=== PATIENT | male | born 1995 | race Caucasian/White ===

== ENCOUNTER 2017-10-27 07:12 | Emergency (ER) | payer OTHER, BC ==
[2017-10-27 07:34] VITALS: BP 128/68
[2017-10-27] MEDS ORDERED: Lidocaine 1% 50 ML MDV INJECT ONE (07:42)
[2017-10-27] MEDS ORDERED: Sodium Chloride 0.9% 500 ML IV ONE (07:42)
[2017-10-27] MEDS ORDERED: HYDROmorphone 1 MG/ML Syringe IVPUSH ONE (07:42)
[2017-10-27] MEDS ORDERED: ceFAZolin 2 GM in Premix Bag 1 BAG IV ONE (07:42)
[2017-10-27] MEDS ORDERED: Sodium Chloride 0.9% 10 ML Syringe FLUSH PRN (07:42)
[2017-10-27] MEDS ORDERED: Ondansetron 4 MG/2 ML SDV IVPUSH ONE (07:42)
--- NOTE | 2017-10-27 09:45 | EDM.PDOC ---
ED HPI GENERAL MEDICAL PROBLEM - General Chief Complaint: Laceration Stated Complaint: RIGHT HAND LAC Time Seen by Provider: 10/27/17 07:35 Source of Information: Reports: Patient, RN Notes Reviewed - History of Present Illness INITIAL COMMENTS - FREE TEXT/NARRATIVE: 22-year-old male suffered laceration injury to his right hand at work short time ago. He was on the back end of a trailer in his he jumped down his hand caught on edge with resultant flap laceration ulnar aspects right hand. He does have some mild numbness of the distal finger. no difficulty with flexion or extension. No other injury. He is right-handed. Up-to-date with tetanus. 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 [No Known Home Meds] 10/27/17 [History] Past Medical History - Past Health History Medical/Surgical History: Denies Medical/Surgical History Musculoskeletal History: Reports: Fracture - Past Surgical History HEENT Surgical History: Reports: Adenoidectomy, Myringotomy w Tube(s), Oral Surgery, Tonsillectomy Musculoskeletal Surgical History: Reports: Shoulder Replacement Social & Family History - Family History Family Medical History: Noncontributory - Tobacco Use Smoking Status *Q: Current Some Day Smoker Years of Tobacco use: 5 Packs/Tins Daily: 0.5 - Caffeine Use Caffeine Use: Reports: Energy Drinks - Recreational Drug Use Recreational Drug Use: No ED ROS GENERAL - Review of Systems Review Of Systems: See Below HEENT: Reports: No Symptoms Respiratory: Denies: Shortness of Breath Cardiovascular: Denies: Chest Pain GI/Abdominal: Denies: Abdominal Pain, Nausea, Vomiting Musculoskeletal: Reports: Other (Pain associated with injury left hand) Skin: Reports: Other (Huge flap laceration injury left hand) Neurological: Reports: Numbness (Mild numbness ulnar aspect of distal ring finger right hand). Denies: Weakness ED EXAM, SKIN/RASH Exam: See Below General Appearance: Alert, Moderate Distress Eye Exam: Bilateral Eye: PERRL Throat/Mouth: Normal Inspection Head: Atraumatic Neck: Supple Respiratory/Chest: No Respiratory Distress Extremities: Other (8 cm large deep gaping flap injury ulnar palmar aspect right hand proximal to the small finger. No foreign material seen. Blood present but no active bleeding. Good finger range of motion and strength, no bony tenderness, no visible deformity) Neurological: Alert, Oriented, Other (No motor weakness, excellent flexion and extension strength. Incision very mildly decreased to touch ulnar aspect of small finger distally.) Skin: Warm, Dry ED SKIN PROCEDURES - Laceration/Wound Repair Right Ventral Hand Lac/Wound length In cm: 8 Appearance: Irregular, Other (Deep gaping jagged flap) Distal NVT: Other (Distal sensation mildly diminished ulnar aspect distal small finger) Anesthetic Type: Local Local Anesthesia - Lidocaine (Xylocaine): 1% Plain Skin Prep: Saline Exploration/Debridement/Repair: Wound Explored, Moderate Debridement Suture Size: 3-0 # of Sutures: 17 Suture Type: Nylon Course - Vital Signs Last Recorded V/S: Last Vital Signs Temp 98.2 F 10/27/17 07:25 Pulse 88 10/27/17 07:25 Resp 18 10/27/17 07:25 BP 128/68 10/27/17 07:25 Pulse Ox 100 10/27/17 07:25 - Orders/Labs/Meds Orders: Active Orders 24 hr Category Date Time Status Peripheral IV Care [RC] . DIRECTED Care 10/27/17 07:43 Active Peripheral IV Insertion Adult [OM.PC] Stat Oth 10/27/17 07:42 Ordered Meds: Medications Discontinued Medications Generic Name Dose Route Start Last Admin Trade Name Freq PRN Reason Stop Dose Admin Hydromorphone HCl 0.5 mg 10/27/17 07:42 10/27/17 07:57 Dilaudid IVPUSH 10/27/17 07:43 0.5 mg ONETIME ONE Administration Cefazolin Sodium/Dextrose 2 gm 50 mls @ 100 mls/hr 10/27/17 07:42 10/27/17 07 :57 / Premix IV 10/27/17 08:11 100 mls/hr ONETIME ONE Administration Sodium Chloride 500 mls @ 999 mls/hr 10/27/17 07:42 10/27/17 07:57 Normal Saline IV 10/27/17 08:12 999 mls/hr .BOLUS ONE Administration Lidocaine HCl 50 ml 10/27/17 07:42 10/27/17 07:57 Xylocaine 1% INJECT 10/27/17 07:43 50 ml ONETIME ONE Administration Ondansetron HCl 4 mg 10/27/17 07:42 10/27/17 07:57 Zofran IVPUSH 10/27/17 07:43 4 mg ONETIME ONE Administration Sodium Chloride 10 ml 10/27/17 07:42 10/27/17 07:57 Saline Flush FLUSH 10 ml ASDIRECTED PRN Administration Keep Vein Open - Re-Assessments/Exams Free Text/Narrative Re-Assessment/Exam: 10/27/17 11:16 I did discuss the numbness that he does have of the ulnar aspect of the small finger. He does have good sensation aVL aspect. I discussed with him that he likely did tear one of the digital nerve fibers going to the outside ulnar side of the finger. I have explained that this may get better with time but that he may always have some sensory deficit of the distal ulnar aspect of the finger. Patient dictates understanding. I've told him I am willing to refer him to a hand surgeon but unsure if they would be able to help him with this type of tearing type disruptive injury. He does not want the referral at this time. He wants me to repair the wound here if possible. We have given Dilaudid 0.5 mg IV for pain and also 2 g Ancef IV. Departure - Departure Time of Disposition: 09:43 Disposition: Home, Self-Care 01 Condition: Fair Clinical Impression: Hand laceration Qualifiers: Foreign body presence: without foreign body Laterality: right - Discharge Information Instructions: Laceration Care, Adult, [id number] Referrals: Margaret Meyers MD [Primary Care Provider] - Forms: ED Department Discharge Additional Instructions: Lac care instr. Pressure dressing right hand, you can leave the dressing we have applied on for 2 days, then change dressing once or twice daily thereafter keeping hand well protected, especially when working. Cephalexin antibiotic 500 mg 4 times daily for 1 week. You may alternate Tylenol and ibuprofen as needed for discomfort. Stitches out in 10 days. There is no charge if you have those removed at our [facility]. Call [phone] for appointment. Have hand rechecked immediately any sign of infection. - My Orders Last 24 Hours: My Active Orders 10/27/17 07:42 Peripheral IV Insertion Adult [OM.PC] Stat 02/12/18 07:43 Peripheral IV Care [RC] . DIRECTED - Assessment/Plan Last 24 Hours: My Active Orders 10/27/17 07:42 Peripheral IV Insertion Adult [OM.PC] Stat 10/27/17 07:43 Peripheral IV Care [RC] . DIRECTED
== END 2017-10-27 10:00 | disposition home or self-care (01) ==
LOC: JD.ED 07:12
DX: S61.411A Laceration without foreign body of right hand, initial encounter (principal); F17.210 Nicotine dependence, cigarettes, uncomplicated; Z88.2 Allergy status to sulfonamides; W23.0XXA Caught, crushed, jammed, or pinched between moving objects, initial encounter; Y92.69 Other specified industrial and construction area as the place of occurrence of the external cause; Y99.0 Civilian activity done for income or pay
CPT/HCPCS: 12004; 96361; 96365; 96375; 99283; J0690; J1170; J2405; J7040; J7050; 99284